=== PATIENT | male | born 1980 | race Caucasian/White ===

== ENCOUNTER 2017-07-21 07:21 | Emergency (ER) | payer OTHER, BC ==
--- NOTE | 2017-07-21 07:50 | EDM.PDOC ---
ED HPI GENERAL MEDICAL PROBLEM - General Chief Complaint: Lower Extremity Injury/Pain Stated Complaint: PAIN IN RIGHT KNEE Time Seen by Provider: 07/21/17 07:35 - History of Present Illness INITIAL COMMENTS - FREE TEXT/NARRATIVE: HISTORY AND PHYSICAL: History of present illness: Patient's a 36-year-old white male presents with concern of right knee pain this is been going on for 4-6 weeks he did have an injury approximately 6 weeks prior he states he has intermittent pain and swelling and occasional popping of his knee. He denies any new or recent trauma Review of systems: As per history of present illness and below otherwise all systems reviewed and negative. Past medical history: As per history of present illness and as reviewed below otherwise noncontributory. Surgical history: As per history of present illness and as reviewed below otherwise noncontributory. Social history: No reported history of drug or alcohol abuse. Family history: As per history of present illness and as reviewed below otherwise noncontributory. Physical exam: HEENT: Atraumatic, normocephalic, pupils reactive, negative for conjunctival pallor or scleral icterus, mucous membranes moist, throat clear, neck supple, nontender, trachea midline. Lungs: Clear to auscultation, breath sounds equal bilaterally, chest nontender. Heart: S1S2, regular, negative for clicks, rubs, or JVD. Abdomen: Soft, nondistended, nontender. Negative for masses or hepatosplenomegaly. Negative for costovertebral tenderness. Pelvis: Stable nontender. Genitourinary: Deferred. Rectal: Deferred. Extremities: Right knee is without effusion joints grossly stable neurovascular exam is unremarkable Neuro: Awake, alert, oriented. Cranial nerves II through XII unremarkable. Cerebellum unremarkable. Motor and sensory unremarkable throughout. Exam nonfocal. Diagnostics: X-ray right knee Therapeutics: None Impression: #1 right knee pain #2 history of right knee injury 6 weeks status post Definitive disposition and diagnosis as appropriate pending reevaluation and review of above. Right Knee Pain Score (Numeric/FACES): 2 - Related Data Allergies Allergy/AdvReac Type Severity Reaction Status Date / Time No Known Allergies Allergy Verified 07/21/17 07:33 Home Meds: Home Meds Albuterol [IJD: Albuterol HFA] 2 puff .XX Q4HR PRN #8 gm 01/26/17 [Rx] Lisinopril 10 mg PO DAILY 07/21/17 [History] Testosterone Cypionate 100 mg PO DAILY 07/21/17 [History] Past Medical History - Past Health History Medical/Surgical History: Denies Medical/Surgical History HEENT History: Reports: Other (See Below) Other HEENT History: esophogus spasm Cardiovascular History: Reports: None Respiratory History: Reports: Bronchitis, Recurrent Gastrointestinal History: Reports: None Genitourinary History: Reports: None Musculoskeletal History: Reports: None Neurological History: Reports: None Psychiatric History: Reports: None Endocrine/Metabolic History: Reports: None Hematologic History: Reports: None Immunologic History: Reports: None Oncologic (Cancer) History: Reports: None Dermatologic History: Reports: None - Past Surgical History Head Surgeries/Procedures: Reports: None HEENT Surgical History: Reports: None Respiratory Surgical History: Reports: None GI Surgical History: Reports: None Male Surgical History: Reports: None Endocrine Surgical History: Reports: None Neurological Surgical History: Reports: None Musculoskeletal Surgical History: Reports: Other (See Below) Other Musculoskeletal Surgeries/Procedures:: bilateral hip reconstruction Oncologic Surgical History: Reports: None Dermatological Surgical History: Reports: None Social & Family History - Family History Cardiac: Reports: [place], [place] - Tobacco Use Smoking Status *Q: Current Every Day Smoker Years of Tobacco use: 20 Packs/Tins Daily: 0.5 - Caffeine Use Caffeine Use: Reports: Coffee, Energy Drinks - Recreational Drug Use Recreational Drug Use: No Review of Systems - Review of Systems Review Of Systems: ROS reveals no pertinent complaints other than HPI. ED EXAM, GENERAL - Physical Exam Exam: See Below (See dictation) Course - Vital Signs Last Recorded V/S: Last Vital Signs Temp 37.3 C 07/21/17 07:36 Pulse 100 07/21/17 07:36 Resp 16 07/21/17 07:36 BP 181/97 H 07/21/17 07:36 Pulse Ox 98 07/21/17 07:36 - Orders/Labs/Meds Orders: Active Orders 24 hr Category Date Time Status Knee 3V Rt [CR] Stat Exams 07/21/17 07:48 Taken Departure - Departure Time of Disposition: 08:31 Disposition: Home, Self-Care 01 Condition: Good Clinical Impression: Knee pain - Discharge Information Referrals: PCP,None [Primary Care Provider] - Forms: ED Department Discharge Additional Instructions: The following information is given to patients seen in the emergency department who are being discharged to home. This information is to outline your options for follow-up care. We provide all patients seen in our emergency department with a follow-up referral. The need for follow-up, as well as the timing and circumstances, are variable depending upon the specifics of your emergency department visit. If you don't have a primary care physician on staff, we will provide you with a referral. We always advise you to contact your personal physician following an emergency department visit to inform them of the circumstance of the visit and for follow-up with them and/or the need for any referrals to a consulting specialist. The emergency department will also refer you to a specialist when appropriate. This referral assures that you have the opportunity for followup care with a specialist. All of these measure are taken in an effort to provide you with optimal care, which includes your followup. Under all circumstances we always encourage you to contact your private physician who remains a resource for coordinating your care. When calling for followup care, please make the office aware that this follow-up is from your recent emergency room visit. If for any reason you are refused follow-up, please contact the [facility] emergency department at and asked to speak to the emergency department charge nurse. [facility] Special[facility] - Orthopedic Clinic Professional [address], [address] [place] [address] Follow-up orthopedic clinic call to schedule routine appointment Motrin/Tylenol as directed continue current medications return as needed as discussed - My Orders Last 24 Hours: My Active Orders 07/21/17 07:48 Knee 3V Rt [CR] Stat - Assessment/Plan Last 24 Hours: My Active Orders 07/21/17 07:48 Knee 3V Rt [CR] Stat
[2017-07-21 08:36] VITALS: BP 152/95
--- NOTE | 2017-07-22 14:58 | CR ---
EXAM DATE: 07/21/17 PATIENT'S AGE: 36 Patient: SUNITA SPEAR Facility: [place], [place] Site . Site : [id number] Study: XRay Knee Right [id number]/29/2017 8:15:06 AM Ordering Physician: Geovanna Martinez Final Report: HISTORY: Right knee pain. TECHNIQUE: Three views of the right knee. COMPARISON: No prior. FINDINGS: There is no acute fracture or malalignment. No joint space narrowing. There is potentially a small amount of suprapatellar joint fluid. Slight spurring at the patellar tendon attachment to the tibial tubercle. No erosive change or chondrocalcinosis. IMPRESSION: 1. Potential small suprapatellar joint effusion. 2. No acute fracture or malalignment. Dictated by Wilbert More MD @ 07/21/2017 8:33:39 AM Dictated by: Wilbert More MD @ 07/21/2017 08:33:42 (Electronic Signature) Report Signed by Proxy. [facility]ITALCarmela
== END 2017-07-21 08:41 | disposition home or self-care (01) ==
LOC: MW.ED 07:21
DX: M25.561 Pain in right knee (principal); F17.210 Nicotine dependence, cigarettes, uncomplicated; Z79.899 Other long term (current) drug therapy
CPT/HCPCS: 73562-26-RT; 73562-RT; 99282; 99283